=== PATIENT | female | born 1970 | race Caucasian/White ===

== ENCOUNTER 2019-04-02 10:35 | Observation (INO) | payer MEDICAID ==
[~2019-04-02] VITALS: Ht 154.9 cm; Wt 68.5 kg
[~2019-04-02 10:35] MED LIST: BUPIVACAINE/PF 0.25% ONE; EPINEPHRINE 1 MG/ML, 1ML ONE; NEOMY/POLYMYXIN B GU IRR. 1 ML ONE
[2019-04-02 11:06] VITALS: BP 131/79
[2019-04-02] MEDS ORDERED: LACTATED RINGERS 1,000 ML IV SCH (11:10)
[2019-04-02 11:41] LABS: HCG UR SG 1.036 (1.003-1.030)
[2019-04-02] MEDS ORDERED: PROPOFOL 50 ML ONE (12:57)
[2019-04-02] MEDS ORDERED: FENTANYL PF 250 MCG/5ML ONE (12:57)
[2019-04-02] MEDS ORDERED: MIDAZOLAM 1 MG/ML, 2ML ONE (12:57)
[2019-04-02] MEDS ORDERED: ROCURONIUM 10 MG/ML,10ML ONE (14:05)
[2019-04-02] MEDS ORDERED: CEFAZOLIN 1,000 MG ONE ×2 (14:20)
[2019-04-02] MEDS ORDERED: SUCCINYLCHOLINE 20 MG/ML, 10ML ONE (14:20)
[2019-04-02] MEDS ORDERED: ONDANSETRON 2MG/ML, 2ML ONE (14:21)
[2019-04-02] MEDS ORDERED: DEXAMETHASONE 4 MG/ML, 1ML ONE (14:21)
[2019-04-02] MEDS ORDERED: hydrALAzine 20 MG/ML, 1ML IV PRN (14:30)
[2019-04-02] MEDS ORDERED: ONDANSETRON 2MG/ML, 2ML IV PRN (14:30)
[2019-04-02] MEDS ORDERED: OXYcodone 5 MG/5 ML ORAL.SOL UDC PO PRN (14:30)
[2019-04-02] MEDS ORDERED: EPHEDRINE 50 MG/ML, 1ML IM PRN (14:30)
[2019-04-02] MEDS ORDERED: MIDAZOLAM 1 MG/ML, 2ML IV PRN (14:30)
[2019-04-02] MEDS ORDERED: DIPHENHYDRAMINE 50 MG/ML, 1ML IVPush PRN (14:30)
[2019-04-02] MEDS ORDERED: DIAZEPAM 5 MG/ML, 2ML IVPush PRN (14:30)
[2019-04-02] MEDS ORDERED: PROMETHAZINE 25 MG/ML, 1ML IV PRN (14:30)
[2019-04-02] MEDS ORDERED: MEPERIDINE/PF 25MG/ML,1ML IVPush PRN (14:30)
[2019-04-02] MEDS ORDERED: ONDANSETRON ODT 8 MG PO PRN (14:30)
[2019-04-02] MEDS ORDERED: EPHEDRINE 50 MG/ML, 1ML IVPush PRN (14:30)
[2019-04-02] MEDS ORDERED: FENTANYL PF 100 MCG/2ML IV PRN (14:30)
[2019-04-02] MEDS ORDERED: MORPHINE SULFATE 4 MG/ML, 1ML IVPush PRN (14:30)
[2019-04-02] MEDS ORDERED: METOPROLOL 1 MG/ML, 5ML IV PRN (14:30)
[2019-04-02] MEDS ORDERED: FUROSEMIDE 20 MG/2 ML ONE (15:00)
[2019-04-02] MEDS ORDERED: FENTANYL PF 100 MCG/2ML ONE (16:14)
[2019-04-02] MEDS ORDERED: OXYcodone 5 MG/5 ML ORAL.SOL UDC ONE (16:14)
[2019-04-02] MEDS ORDERED: KETOROLAC 30 MG/1 ML ONE (18:53)
[2019-04-02] MEDS: KETOROLAC 30 MG/1 ML IVPush PRN (18:56)
[2019-04-02] MEDS ORDERED: ONDANSETRON 2MG/ML, 2ML IVPush PRN (19:00)
[2019-04-02] MEDS ORDERED: HYDROcodone/APAP 5/325 TABLET PO PRN ×2 (19:00→21:00)
[2019-04-02] MEDS ORDERED: HYDROmorphone 1 MG/ML, 1ML INJ IV PRN (21:00)
[2019-04-02] MEDS ORDERED: OXYcodone/APAP 5/325MG TABLET PO PRN (21:00)
[2019-04-02] MEDS ORDERED: KETOROLAC 30 MG/1 ML IV PRN (21:00)
[2019-04-02] MEDS ORDERED: IBUPROFEN 600 MG TABLET PO PRN (21:00)
[2019-04-02] MEDS ORDERED: HYDROmorphone 1 MG/ML, 1ML VIAL IV PRN (21:50)
[2019-04-02 23:54] VITALS: BP 140/73
[2019-04-03] MEDS: ONDANSETRON 2MG/ML, 2ML IV PRN ×2 (01:01→07:29)
[2019-04-03] MEDS: KETOROLAC 30 MG/1 ML IVPush PRN ×2 (01:01→07:29)
[2019-04-03 03:07] VITALS: BP 118/80
[2019-04-03 07:38] VITALS: BP 115/82
== END 2019-04-03 07:54 | disposition home or self-care (01) ==
LOC: OUT 10:35 → 4NE 19:19 → OUT 21:22 → 4NE 21:23
PROVIDERS: ADMIT Obstetrics & Gynecology Female Pelvic Medicine and Reconstructive Surgery; ATTEND Obstetrics & Gynecology Female Pelvic Medicine and Reconstructive Surgery
DX: N92.1 Excessive and frequent menstruation with irregular cycle (principal); N94.6 Dysmenorrhea, unspecified; N94.10 Unspecified dyspareunia; N39.46 Mixed incontinence; N81.89 Other female genital prolapse; F41.9 Anxiety disorder, unspecified; G47.00 Insomnia, unspecified; G43.909 Migraine, unspecified, not intractable, without status migrainosus; M06.9 Rheumatoid arthritis, unspecified; M81.0 Age-related osteoporosis without current pathological fracture; G47.30 Sleep apnea, unspecified; K21.9 Gastro-esophageal reflux disease without esophagitis; E03.9 Hypothyroidism, unspecified
CPT/HCPCS: 51992; 57265; 58552; 81025; 88307; 96374; 96375; 96376; C1771; G0378; J0171; J0330; J0690; J1100; J1200; J1885; J1940; J2250; J2405; J2704; J3010; J3490